=== PATIENT | female | born 1960 | race Caucasian/White ===

== ENCOUNTER 2017-02-25 09:03 | Day surgery (SDC) | payer OTHER ==
[~2017-02-25 09:03] MED LIST: LIDOCAINE HCL 1% MPF SOL ONE; PROPOFOL 500 MG/50 ML EMU IV ONE
[2017-02-25] MEDS ORDERED: FENTANYL 100MCG/2ML SOL ONE (10:02)
[2017-02-25 11:05] VITALS: O2SAT 98
[2017-02-25 11:23] VITALS: BP 132/82; PULSE 56; RESP 20; TEMP 97.4
== END 2017-02-25 11:40 | disposition home or self-care (01) | DRG 313 ==
LOC: SURG 09:03
PROVIDERS: ATTEND Surgery
DX: R07.89 Other chest pain (principal); R11.2 Nausea with vomiting, unspecified
CPT/HCPCS: J3010; J2001; J2704